=== PATIENT | female | born 1990 | race Caucasian/White ===

== ENCOUNTER 2017-01-22 14:46 | Emergency (ER) ==
[2017-01-22] MEDS ORDERED: NORFLEX IV ONE (16:46)
[2017-01-22 16:59] LABS: MANUAL DIFF NEEDED? NO
[2017-01-22 17:13] LABS: BASO% 0.3 % (0.0-0.8); EOS# 0.03 X1000 (0.0-0.7); EOS% 0.9 % (0.0-10.0); HEMATOCRIT 37.1 % (37.0-47.0); HEMOGLOBIN 12.4 g/dL (12.0-16.0); LYMPH# 1.12 X1000 (1.2-3.4); LYMPH% 35.4 % (20.5-51.1); MCHC 33.4 g/dL (33-37); MCV 86.7 FL (81-99); MONO# 0.41 X1000 (0.11-0.59); MPV 10.7 FL (7.4-10.4); NEUT% 50.4 % (42.2-75.2); PLT 157 X1000 (130-400); RBC 4.28 XMIL (4.2-5.4)
[2017-01-22 17:23] LABS: AGAP 10; ALBUMIN 4.3 g/dL (3.5-5.0); ALKALINE PHOSPHATASE 79 U/L (32-104); BUN 9 mg/dL (8-22); CALCIUM 9.2 mg/dL (8.8-10.2); CHLORIDE 98 mmol/L (98-107); COSMO 262; GOT 17 U/L (10-30); GPT 14 U/L (10-36); LIPASE 17 U/L (13-60); POTASSIUM 3.6 mmol/L (3.5-5.1); SODIUM 132 mmol/L (136-145); TCO2 25 mmol/L (25-35); TOTAL PROTEIN 6.8 g/dL (6.3-8.3)
[2017-01-22] MEDS ORDERED: ZOFRAN ODT PO ONE (17:51)
[2017-01-22] MEDS ORDERED: NORCO-7.5 PO ONE (17:51)
--- NOTE | 2017-01-22 17:51 | PROVIDER DOCUMENTATION ---
HPI-Abdominal Pain/GI Problem - General Source: patient - History of Present Illness-ABD Nature of Presenting Problems: Pt is 26 y/o F presents to the ED with epigastric pain. Pt states the pain started 2 weeks ago. Pt denies N/V/D. Pt denies injury or trauma. Pt states took Tylenol with relief. Abdominal Pain Onset Location: reports: epigastric Pain Radiation: reports: no radiation Quality of Pain: reports: aching Severity in ED: reports: mild Onset/Duration: reports: other (2 weeks) Timing: reports: still present Activities at Onset: reports: light activity Exposure to sick contacts?: No Modifying Factors: improves with: movement (worse), other (bending over makes pain worse) Associated Symptoms: reports: denies symptoms Last BM: unsure Dark Stools Present?: reports: none noticed Rectal Bleeding: reports: none Rectal Pain: reports: none Emesis Description: reports: none Bruising or Bleeding Gums?: No Similar Symptoms Previously?: Yes Recently seen or treated by another doctor?: No <Krystal Esquivel - Last Filed: 01/22/17 17:47> <Edgar Sandy - Last Filed: 01/22/17 19:07> - General Chief Complaint: General Adult Stated Complaint: ABD PAIN/RASH Time Seen by Provider: 01/22/17 16:31 Allergies/Adverse Reactions: Patient Allergies Allergy/AdvReac Type Severity Reaction Status Date / Time No Known Allergies Allergy Verified 01/22/17 14:59 Home Medications: Home Medication List Medication Instructions Recorded Confirmed Last Taken Type Cyclobenzaprine [Flexeril] 10 mg PO TID #20 tablet 01/22/17 Unknown Rx Esomeprazole [Nexium] 40 mg PO DAILY #30 capsule 01/22/17 Unknown Rx Review of Systems - Adult - REVIEW OF SYSTEMS - ADULT Constitutional: denies: chills, fever Eyes: denies: blurred vision, double vision Ears, Nose, Mouth & Throat: denies: ear pain, nose pain, throat pain Cardiovascular: denies: chest pain, heart murmur, irregular heart rate Respiratory: denies: cough, shortness of breath, wheezing Gastrointestinal: reports: abdominal pain (epigastric). denies: diarrhea, nausea, vomiting Genitourinary: denies: dysuria, hematuria Musculoskeletal: denies: bone pain, joint pain, neck pain Integumentary: denies: hives, itching Neurological: denies: dizziness/vertigo, headache/migraines Psychiatric: reports: no symptoms reported Endocrine: reports: no symptoms reported Hematologic/Lymphatic: reports: no symptoms reported Allergic/Immunologic: reports: no symptoms reported All Other Systems: Reviewed and Negative <Carol Esquivelomi - Last Filed: 01/22/17 17:47> Past History - Adult - PAST MEDICAL HISTORY-ADULT Review of Records: reports: Nursing Assessment Review, Medications Reviewed, Social history reviewed & non-contributory. Major Childhood Illnesses: reports: denies history Cardiovascular: reports: denies history Respiratory: reports: denies history Gastrointestinal: reports: denies history Obstetrical/Gynecological: reports: denies history Genitourinary: reports: denies history Musculoskeletal: reports: denies history Neurological: reports: denies history Endocrine/Immune: reports: denies history Other Conditions: reports: denies history - PRIOR SURGERIES/PROCEDURES Surgical/Procedure History: reports: reviewed, not pertinent, other (cyst removal) - PRIOR HOSPITALIZATIONS Prior Hospitalizations: reports: none - IMMUNIZATION STATUS Childhood Immunizations: See Nurse Assessment Flu Vaccine: See Nurse Assessment - FAMILY HISTORY Family History: reviewed, not pertinent - SOCIAL HISTORY Smoking: cigarettes, less than 1 pack/day Provider spent 3-5 mins advising pt. on dangers of tobacco.: Discussed manners to quit use, and f/u contacts for add'l counseling. Substance Use: denies Living Situation: family <AlvinKrystal - Last Filed: 01/22/17 17:47> Physical Exam-General - PHYSICAL EXAM-ADULT Initial Vital Signs Reviewed: Yes - CONSTITUTIONAL General Appearance: appears well, alert, no apparent distress - EYES Eyes: PERRL/EOMI, pink conjunctivae, fundi clear, no AV nicking - HEAD, EARS, NOSE, MOUTH & THROAT HENMT: normocephalic/atraumatic, moist mucous membranes, normal ENT inspection, TMs normal, pharynx normal - NECK Neck: non-tender, full range of motion, supple, normal inspection - RESPIRATORY Respiratory: chest non-tender, lungs clear, normal breath sounds, no pleuratic chest pain, no respiratory distress, no accessory muscle use - CARDIOVASCULAR Cardiovascular: normal peripheral pulses, regular rate, rhythm, no edema, no gallop, no JVD, no murmur - GASTROINTESTINAL (ABDOMEN) Abdominal Exam: normal bowel sounds, soft, no organomegaly, no pulsatile mass, tenderness (epigastric) - LYMPHATIC Lymphatic: no adenopathy - MUSCULOSKELETAL Back Exam: normal inspection, no CVA tenderness, no vertebral tenderness Extremity: normal range of motion, non-tender, normal gait, normal inspection, no pedal edema, no calf tenderness - SKIN Integumentary: normal color, normal turgor, warm/dry - NEUROLOGIC Neurologic: fisher oyster II-XII nml as tested, grossly normal, no motor/sensory deficits - PSYCHIATRIC Psych/Mental Status: normal mood/affect, normal thought content, normal thought process, oriented x 3 <Krystal Esquivel - Last Filed: 01/22/17 17:47> Progress - PLAN OF CARE/RESULTS Progress/Plan/Lab Results: Laboratory Tests 01/22/17 01/22/17 16:50 16:50 WBC 3.16 L RBC 4.28 Hgb 12.4 Hct 37.1 MCV 86.7 MCH 29.0 MCHC 33.4 RDW Std Deviation 14.2 Plt Count 157 MPV 10.7 H Immature Gran % (Auto) 0.0 Neut % (Auto) 50.4 Lymph % (Auto) 35.4 [place] % (Auto) 13.0 H Eos % (Auto) 0.9 Baso % (Auto) 0.3 Immature Gran # (Auto) 0.00 Neut # (Auto) 1.59 Lymph # (Auto) 1.12 L [place] # (Auto) 0.41 Eos # (Auto) 0.03 Baso # (Auto) 0.01 Sodium 132 L Potassium 3.6 Chloride 98 Carbon Dioxide 25 Anion Gap 10 BUN 9 Creatinine 0.7 Estimated GFR/1.73 m2 > 60 BUN/Creatinine Ratio 13 Glucose 81 Calculated Osmolality 262 Calcium 9.2 Total Bilirubin 0.20 AST 17 ALT 14 Alkaline Phosphatase 79 Total Protein 6.8 Albumin 4.3 Globulin 3.0 Albumin/Globulin Ratio 2.0 Lipase 17 Orders Category Date Time Status ED: Urine Bedside ORDERED Care 01/22/17 16:46 Active Saline Loc NOW Care 01/22/17 16:45 Active CBC WITH DIFF [HEME] Stat Lab 01/22/17 16:50 Completed COMPREHENSIVE METABOLIC PANEL [CHEM] Stat Lab 01/22/17 16:50 Completed LIPASE [CHEM] Stat Lab 01/22/17 16:[address] W/POSS RFLX CULT [URINALYSIS] Stat Lab 01/22/17 17:47 Ordered Orphenadrine [Norflex] Med 01/22/17 16:46 Discontinued 60 mg IV NOW ONE Vital Signs - 24 hr 01/22/17 14:56 Temperature 98.0 F Pulse Rate 84 Respiratory 16 Rate Blood Pressure 124/67 O2 Sat by Pulse 98 Oximetry <Krystal Esquivel - Last Filed: 01/22/17 17:47> - PLAN OF CARE/RESULTS Progress/Plan/Lab Results: Laboratory Tests 01/22/17 01/22/17 01/22/17 16:50 16:50 17:41 WBC 3.16 L RBC 4.28 Hgb 12.4 Hct 37.1 MCV 86.7 MCH 29.0 MCHC 33.4 RDW Std Deviation 14.2 Plt Count 157 MPV 10.7 H Immature Gran % (Auto) 0.0 Neut % (Auto) 50.4 Lymph % (Auto) 35.4 [place] % (Auto) 13.0 H Eos % (Auto) 0.9 Baso % (Auto) 0.3 Immature Gran # (Auto) 0.00 Neut # (Auto) 1.59 Lymph # (Auto) 1.12 L [place] # (Auto) 0.41 Eos # (Auto) 0.03 Baso # (Auto) 0.01 Sodium 132 L Potassium 3.6 Chloride 98 Carbon Dioxide 25 Anion Gap 10 BUN 9 Creatinine 0.7 Estimated GFR/1.73 m2 > 60 BUN/Creatinine Ratio 13 Glucose 81 Calculated Osmolality 262 Calcium 9.2 Total Bilirubin 0.20 AST 17 ALT 14 Alkaline Phosphatase 79 Total Protein 6.8 Albumin 4.3 Globulin 3.0 Albumin/Globulin Ratio 2.0 Lipase 17 Urine Source CLEAN CATCH Urine Color YELLOW Urine Clarity SL. CLOUDY A Urine pH 5.0 Ur Specific [place] 1.020 Urine Protein TRACE A Urine Ketones 1+(Small) A Urine Blood 4+ Urine Nitrite NEGATIVE Urine Bilirubin NEGATIVE Urine Urobilinogen 1+(1 mg/dL) Urine Microscopic RBC 10-20 A Urine WBC TRACE A Urine Microscopic WBC <10 Ur Epithelial Cells >10 A Urine Crystals URIC ACID PRESENT Urine Bacteria 1+ Urine Casts NONE SEEN Urine Yeast NONE SEEN Urine Glucose NEGATIVE Monoscreen 01/22/17 18:15 WBC RBC Hgb Hct MCV MCH MCHC RDW Std Deviation Plt Count MPV Immature Gran % (Auto) Neut % (Auto) Lymph % (Auto) [place] % (Auto) Eos % (Auto) Baso % (Auto) Immature Gran # (Auto) Neut # (Auto) Lymph # (Auto) [place] # (Auto) Eos # (Auto) Baso # (Auto) Sodium Potassium Chloride Carbon Dioxide Anion Gap BUN Creatinine Estimated GFR/1.73 m2 BUN/Creatinine Ratio Glucose Calculated Osmolality Calcium Total Bilirubin AST ALT Alkaline Phosphatase Total Protein Albumin Globulin Albumin/Globulin Ratio Lipase Urine Source Urine Color Urine Clarity Urine pH Ur Specific [place] Urine Protein Urine Ketones Urine Blood Urine Nitrite Urine Bilirubin Urine Urobilinogen Urine Microscopic RBC Urine WBC Urine Microscopic WBC Ur Epithelial Cells Urine Crystals Urine Bacteria Urine Casts Urine Yeast Urine Glucose Monoscreen NEGATIVE Orders Category Date Time Status ED: Urine Bedside ORDERED Care 01/22/17 16:46 Active Saline Loc NOW Care 01/22/17 16:45 Active FLAT/UPRIGHT ABD/1 VIEW CHEST [RAD] Stat Exams 01/22/17 17:52 Taken CBC WITH DIFF [HEME] Stat Lab 01/22/17 16:50 Completed COMPREHENSIVE METABOLIC PANEL [CHEM] Stat Lab 01/22/17 16:50 Completed LIPASE [CHEM] Stat Lab 01/22/17 16:50 Completed MONO SCREEN [SERO] Stat Lab 01/22/17 18:[address] W/POSS RFLX CULT [URINALYSIS] Stat Lab 01/22/17 17:41 Completed URINE CULTURE [RM] Routine Lab 01/22/17 18:27 Ordered Cyclobenzaprine [Flexeril] Med 01/22/17 18:19 Discontinued 10 mg PO NOW ONE Hydrocodone/APAP 7.5 mg/325 mg [[place]-7.5] Med 01/22/17 17:51 Discontinued 1 each PO NOW ONE Lido/Booker Alk/Al&mg Hydrox [G.i. Cocktail] Med 01/22/17 18:19 Discontinued 30 ml PO NOW ONE Ondansetron Odt [Zofran Odt] Med 01/22/17 17:51 Discontinued 4 mg PO NOW ONE Orphenadrine [Norflex] Med 01/22/17 16:46 Discontinued 60 mg IV NOW ONE Vital Signs Temp Pulse Resp BP Pulse Ox 01/22/17 14:56 98.0 F 84 16 124/67 98 No Known Allergies Allergy (Verified 01/22/17 14:59) No Home Medications 01/22/17 Laboratory 01/22/17 01/22/17 01/22/17 18:15 17:41 16:50 WBC 3.16 L RBC 4.28 Hgb 12.4 Hct 37.1 MCV 86.7 MCH 29.0 MCHC 33.4 RDW Std Deviation 14.2 Plt Count 157 MPV 10.7 H Immature Gran % (Auto) 0.0 Neut % (Auto) 50.4 Lymph % (Auto) 35.4 [place] % (Auto) 13.0 H Eos % (Auto) 0.9 Baso % (Auto) 0.3 Immature Gran # (Auto) 0.00 Neut # (Auto) 1.59 Lymph # (Auto) 1.12 L [place] # (Auto) 0.41 Eos # (Auto) 0.03 Baso # (Auto) 0.01 Sodium Potassium Chloride Carbon Dioxide Anion Gap BUN Creatinine Estimated GFR/1.73 m2 BUN/Creatinine Ratio Glucose Calculated Osmolality Calcium Total Bilirubin AST ALT Alkaline Phosphatase Total Protein Albumin Globulin Albumin/Globulin Ratio Lipase Urine Source CLEAN CATCH Urine Color YELLOW Urine Clarity SL. CLOUDY A Urine pH 5.0 Ur Specific [place] 1.020 Urine Protein TRACE A Urine Ketones 1+(Small) A Urine Blood 4+ Urine Nitrite NEGATIVE Urine Bilirubin NEGATIVE Urine Urobilinogen 1+(1 mg/dL) Urine Microscopic RBC 10-20 A Urine WBC TRACE A Urine Microscopic WBC <10 Ur Epithelial Cells >10 A Urine Crystals URIC ACID PRESENT Urine Bacteria 1+ Urine Casts NONE SEEN Urine Yeast NONE SEEN Urine Glucose NEGATIVE Monoscreen NEGATIVE 01/22/17 16:50 WBC RBC Hgb Hct MCV MCH MCHC RDW Std Deviation Plt Count MPV Immature Gran % (Auto) Neut % (Auto) Lymph % (Auto) [place] % (Auto) Eos % (Auto) Baso % (Auto) Immature Gran # (Auto) Neut # (Auto) Lymph # (Auto) [place] # (Auto) Eos # (Auto) Baso # (Auto) Sodium 132 L Potassium 3.6 Chloride 98 Carbon Dioxide 25 Anion Gap 10 BUN 9 Creatinine 0.7 Estimated GFR/1.73 m2 > 60 BUN/Creatinine Ratio 13 Glucose 81 Calculated Osmolality 262 Calcium 9.2 Total Bilirubin 0.20 AST 17 ALT 14 Alkaline Phosphatase 79 Total Protein 6.8 Albumin 4.3 Globulin 3.0 Albumin/Globulin Ratio 2.0 Lipase 17 Urine Source Urine Color Urine Clarity Urine pH Ur Specific [place] Urine Protein Urine Ketones Urine Blood Urine Nitrite Urine Bilirubin Urine Urobilinogen Urine Microscopic RBC Urine WBC Urine Microscopic WBC Ur Epithelial Cells Urine Crystals Urine Bacteria Urine Casts Urine Yeast Urine Glucose Monoscreen Pt is feeling much better. I am fairly confident that this is musculoskeletal pain rather than internal abdominal pains. Will d/c home. She is in agreement. - XRAY 1 XRAY Study: Abdomen XRAY Interpretation: nad <Edgar Sandy - Last Filed: 01/22/17 19:07> Departure <Krystal Esquivel - Last Filed: 01/22/17 17:47> - Departure Time of Disposition Order: 19:05 Certified Medical Emergency: Emergent <Omer Sandyamada Marin - Last Filed: 01/22/17 19:07> - Departure DIAGNOSIS: Abdominal wall pain in epigastric region Disposition: HOME 01 Condition: Good Additional Instructions: Take medication as prescribed. Follow up with your primary care provider or boiler control technician. ED Follow Up Instructions: You have been treated by a care provider in the Emergency Department. These instructions are being provided to you so you can have an understanding of how to care for yourself upon discharge. Upon discharge from the Emergency Department, you are responsible for making arrangements for follow-up care by a physician of your choice. Take all prescribed medications as directed. Return to the Emergency Department immediately for any new or worsening symptoms. You may call the Physician Referral phone number at [phone] to obtain a list of Physicians who are taking new patients. Prescriptions: Cyclobenzaprine [Flexeril] 10 mg PO TID #20 tablet Esomeprazole [Nexium] 40 mg PO DAILY #30 capsule Referrals: Cheri Hutchinson [Primary Care Provider] - Mo Aguero MD [STAFF PHYSICIAN] - Attestation - Scribe Verification/Attestation Scribe:: Krystal Esquivel Acting as Scribe for:: Edgar Sandy Scribe documention review:: This chart was documented by a scribe and accurately reflects the service the provider performed and the decisions made by the provider. <Krystal Esquivel - Last Filed: 01/22/17 17:47> - Physician/ PEGGY Attestation Patient care was provided by Advanced Practice Provider:: Yes Advanced Practice Provider:: Edgar Sandy Advanced Practice Provider documentation review:: The Mid-level provider documentation, treatment plan and medical decision making was reviewed by the physician who agrees with all treatment and medical decision making by the MLP. <Edgar Sandy - Last Filed: 01/22/17 19:07> Physician Attestation
[2017-01-22 18:03] LABS: URINE SOURCE CLEAN CATCH
[2017-01-22 18:07] LABS: BILIRUBIN URINE NEGATIVE (NEGATIVE); BLOOD URINE 4+ (NEGATIVE); CLARITY SL. CLOUDY (CLEAR); COLOR YELLOW; GLUCOSE URINE NEGATIVE (NEGATIVE); LEUKOCYTES URINE TRACE (NEGATIVE); NITRITE URINE NEGATIVE (NEGATIVE); PROTEIN URINE TRACE mg/dL (NEGATIVE); UROBILINOGEN URINE 1+(1 mg/dL)
[2017-01-22] MEDS ORDERED: G.I. COCKTAIL PO ONE (18:19)
[2017-01-22] MEDS ORDERED: FLEXERIL PO ONE (18:19)
[2017-01-22 18:26] LABS: URINE WBC <10 /HPF (<10)
[2017-01-22 18:27] LABS: URINE CAST NONE SEEN /LPF; URINE CRYSTAL URIC ACID PRESENT /HPF; URINE CULTURE PL NEEDED? YES; URINE EPITHELIAL CELLS >10 /HPF (<10)
[2017-01-22 19:21] VITALS: BP 108/79
--- NOTE | 2017-01-23 07:33 | Diag Imaging Result Document ---
PROCEDURE NAME: FLAT/UPRIGHT ABD/1 VIEW CHEST - 01/22/2017 FLAT AND UPRIGHT AND CHEST, THREE VIEWS: FINDINGS: The lungs are well expanded. No pneumonia. No cardiomegaly. No free air beneath the diaphragm. No bowel obstruction. No organomegaly. Mild scoliosis. No abnormal abdominal or pelvic calcifications. IMPRESSION: No acute abnormality.
== END 2017-01-22 19:23 | disposition home or self-care (01) ==
LOC: P.ED 14:46
DX: R10.13 Epigastric pain (principal); F17.210 Nicotine dependence, cigarettes, uncomplicated; Z71.6 Tobacco abuse counseling
CPT/HCPCS: 74022; 80053; 81001; 81025; 83690; 85025; 86308; 87088; 99284